=== PATIENT | female | born 1965 | race Caucasian/White ===

== ENCOUNTER 2023-01-11 04:55 | Day surgery (SDC) | payer OTHER ==
[~2023-01-11] VITALS: Ht 144.8 cm; Wt 64.9 kg
[2023-01-11] MEDS ORDERED: VANCOMYCIN HCL 1,000 MG in NS 250 ML IV ONE (05:00)
[2023-01-11] MEDS ORDERED: SCOPOLAMINE HYDROBROMIDE 1 MG PATCH .72 H (TRANSDERM-SCOP) TD ONE ×2 (05:17→07:00)
[2023-01-11] MEDS ORDERED: CELECOXIB 200 MG CAPSULE ONE (05:17)
[2023-01-11] MEDS ORDERED: ACETAMINOPHEN 500 MG TABLET ONE (05:17)
[2023-01-11] MEDS ORDERED: oxyCODONE HCL 10 MG TAB.ER.12H PO ONE ×2 (06:19→07:00)
[2023-01-11] MEDS ORDERED: MELO-89 PO (06:29)
[2023-01-11] MEDS ORDERED: ACET-2634 PO (06:29)
[2023-01-11] MEDS ORDERED: OMEG10006 PO (06:29)
[2023-01-11] MEDS ORDERED: VITD2000 PO (06:29)
[2023-01-11] MEDS ORDERED: TRANEXAMIC ACID 1,000 MG/10 ML VIAL ONE (06:45)
[2023-01-11] MEDS ORDERED: VANCOMYCIN HCL 1000 MG/VIAL IV ONE (06:45)
[2023-01-11] MEDS ORDERED: WATER FOR IRRIGATION,STERILE 1,000 ML IRRIG.SOLN IR ONE (06:45)
[2023-01-11] MEDS ORDERED: SEVOFLURANE 15 MIN GAS INH ONE (06:45)
[2023-01-11] MEDS ORDERED: DEXAMETHASONE SOD PHOSPHATE 4 MG/ML VIAL ONE (06:45)
[2023-01-11] MEDS ORDERED: fentaNYL CITRATE/PF 100 MCG/2 ML AMP ONE ×2 (06:45→06:57)
[2023-01-11] MEDS ORDERED: GLYCOPYRROLATE 0.2 MG/ML VIAL ONE (06:45)
[2023-01-11] MEDS ORDERED: MIDAZOLAM HCL 2 MG/2 ML VIAL (VERSED) ONE (06:45)
[2023-01-11] MEDS ORDERED: ONDANSETRON HCL 4 MG/2 ML VIAL ONE (06:45)
[2023-01-11] MEDS ORDERED: NEOSTIGMINE METHYLSULFATE 1 MG/ML, 10 ML VIAL ONE (06:45)
[2023-01-11] MEDS ORDERED: PROPOFOL 200MG/ 20ML VIAL (DIPRIVAN) IV ONE (06:45)
[2023-01-11] MEDS ORDERED: BUPIVACAINE /PF 0.25% 30 ML VIAL INJ ONE (06:45)
[2023-01-11] MEDS ORDERED: NS IRRIG SOLN 1000 ML IR ONE (06:45)
[2023-01-11] MEDS ORDERED: ROCURONIUM BROMIDE 10 MG/ML (ZEMURON) ONE (06:45)
[2023-01-11] MEDS ORDERED: LR 1,000 ML IV.SOLN IV ONE (06:45)
[2023-01-11] MEDS ORDERED: HYDROmorphone 2 MG/ML VIAL ONE ×2 (06:45→06:57)
[2023-01-11] MEDS ORDERED: MIDAZOLAM HCL 5 MG/5 ML VIAL ONE (06:56)
[2023-01-11] MEDS ORDERED: ACETAMINOPHEN 500 MG TABLET PO ONE (07:00)
[2023-01-11] MEDS ORDERED: GABAPENTIN 400 MG CAPSULE PO ONE (07:00)
[2023-01-11] MEDS ORDERED: ceFAZolin SODIUM 2 GM in D5W 100 ML IV ONE (07:00)
[2023-01-11] MEDS ORDERED: CELECOXIB 200 MG CAPSULE PO ONE (07:00)
[2023-01-11] MEDS ORDERED: ONDANSETRON 4 MG ODT TAB PO ONE (07:00)
[2023-01-11] MEDS ORDERED: SENNOSIDES 8.6 MG TABLET PO PRN (10:15)
[2023-01-11 10:25] VITALS: BP_SYST 115; PULSE 104; RESP 16; TEMP 98.2; O2SAT 99
[2023-01-11] MEDS ORDERED: ONDANSETRON HCL 4 MG/2 ML VIAL IVP PRN (10:30)
[2023-01-11] MEDS ORDERED: KETOROLAC TROMETHAMINE 15 MG VIAL IVP PRN (10:30)
[2023-01-11] MEDS ORDERED: ACETAMINOPHEN I.V. 1000 MG 100 ML IV PRN (10:30)
[2023-01-11] MEDS ORDERED: oxyCODONE HCL 5 MG TABLET PO PRN (10:30)
[2023-01-11 12:00] VITALS: BP_SYST 107; PULSE 100; RESP 18; TEMP 98.3; O2SAT 99
[2023-01-11 12:30] VITALS: BP_SYST 112; PULSE 101; RESP 16; TEMP 97.6; O2SAT 2
[2023-01-11 16:00] VITALS: BP_SYST 104; PULSE 96; RESP 18; TEMP 98; O2SAT 99
[2023-01-11 20:09] VITALS: BP_SYST 104; PULSE 96; RESP 18; TEMP 98; O2SAT 98
== END 2023-01-11 20:35 | disposition home or self-care (01) ==
LOC: SOR 04:55 → SMU 04:55 → EDSTATUS 07:30 → SMU 11:34 → SOR 20:35
PROVIDERS: ATTEND Orthopaedic Surgery
DX: M17.0 Bilateral primary osteoarthritis of knee (principal)
CPT/HCPCS: 27447; 97162; 86886; 97530; 97110; 97116; 86900; 86901; 36415; 73560; 88305; 88311; Q0162; J3490 ×3; J1100; J2250; J3465; J2405; J2704; J3370; J3010; J1170; J7060; J7120; J7050; C1713 ×2; C1776; J0131; J2710